=== PATIENT | female | born 1970 | race Caucasian/White ===

== ENCOUNTER 2019-02-01 13:56 | Emergency (ER) | payer BC ==
[2019-02-01] MEDS ORDERED: LORazepam 2 MG/ML INJ IV STA (14:55)
[2019-02-01] MEDS ORDERED: SODIUM CHLORIDE 0.9% 1,000 ML IV ONE (14:57)
--- NOTE | 2019-02-01 15:29 | ED ---
Anxiety HPI - General Chief Complaint: Anxiety Stated Complaint: Dizziness, near syncope Time Seen by Provider: 02/01/19 14:42 Source: patient, RN notes reviewed Mode of arrival: wheelchair Limitations: no limitations - History of Present Illness Initial Comments: 48-year-old female presents emergency Department chief complaint of feeling lightheaded, URI symptoms, anxiety. Patient states she's not sure what's going on though she states that she is very stressed with the care of her mother. Patient states that she give him a 24 hour care she is currently in the hospital for CVA. She states that she just feels overwhelmed and was sitting around and felt lightheaded. She had no syncopal episodes denies any chest pain or palpitations. Patient does admit that her anxiety level has been higher than usual and she has been out of her Wellbutrin. Patient denies being suicidal or homicidal denies any nausea vomiting diarrhea constipation. - Related Data Home Medications: Home Medications Medication Instructions Recorded Confirmed Amitriptyline HCl [Elavil] 25 mg PO HS 02/01/19 02/01/19 Buta/APAP/Caf/Cod [id number] 1 - 2 cap PO Q8H PRN 02/01/19 02/01/19 [Fioricet w/Cod [id number]] Dicyclomine [Bentyl] 10 mg PO BID PRN 02/01/19 02/01/19 PARoxetine HCL [Paxil] 40 mg PO DAILY 02/01/19 02/01/19 busPIRone HCl [Buspar] 10 mg PO BID 02/01/19 02/01/19 Previous Rx's Medication Instructions Recorded LORazepam [Ativan] 0.5 mg PO TID PRN 3 Days #9 tab 02/01/19 buPROPion XL [Wellbutrin Xl] 150 mg PO DAILY #30 tab.er.24h 02/01/19 Allergies/Adverse Reactions: Allergies Allergy/AdvReac Type Severity Reaction Status Date / Time egg AdvReac GI UPSET Verified 02/01/19 15:18 gluten AdvReac GI UPSET Verified 02/01/19 15:18 soy AdvReac GI UPSET Verified 02/01/19 15:18 wheat AdvReac GI UPSET Verified 02/01/19 15:18 Review of Systems ROS Statement: Those systems with pertinent positive or pertinent negative responses have been documented in the HPI. ROS Other: All systems not noted in ROS Statement are negative. Past Medical History Past Medical History: No Reported History History of Any Multi-Drug Resistant Organisms: None Reported Past Surgical History: Hysterectomy Additional Past Surgical History / Comment(s): Right nephrectomy, Jaw surgery, Rhinoplasty Past Psychological History: Anxiety, Depression Smoking Status: Never smoker Past Alcohol Use History: Occasional Past Drug Use History: None Reported General Exam Limitations: no limitations General appearance: alert, in no apparent distress Head exam: Present: atraumatic, normocephalic, normal inspection Eye exam: Present: normal appearance, PERRL, EOMI. Absent: scleral icterus, conjunctival injection, periorbital swelling ENT exam: Present: normal exam, normal oropharynx, mucous membranes moist Neck exam: Present: normal inspection, full ROM. Absent: tenderness, meningism us, lymphadenopathy Respiratory exam: Present: normal lung sounds bilaterally. Absent: respiratory distress, wheezes, rales, rhonchi, stridor Cardiovascular Exam: Present: regular rate, normal rhythm, normal heart sounds. Absent: systolic murmur, diastolic murmur, rubs, gallop, clicks GI/Abdominal exam: Present: soft, normal bowel sounds. Absent: distended, tenderness, guarding, rebound, rigid Neurological exam: Present: alert, oriented X3, CN II-XII intact, reflexes normal. Absent: motor sensory deficit Psychiatric exam: Present: anxious Skin exam: Present: warm, dry, intact, normal color. Absent: rash Course Vital Signs 02/01/19 13:57 Temperature 97.8 F Pulse Rate 96 Respiratory 20 Rate Blood Pressure 143/80 O2 Sat by Pulse 100 Oximetry Medical Decision Making - Medical Decision Making 48-year-old female presented presented for stress anxiety, overall feeling, dizziness. Patient lab EKG unremarkable she feels better after Ativan. Patient be discharged at this time is felt related to her stress reaction and anxiety. - Lab Data Result diagrams: 02/01/19 13:23 02/01/19 13:23 Lab Results 02/01/19 02/01/19 02/01/19 Range/Units 13:23 13:23 13:23 WBC 5.0 (3.8-10.6) k/uL RBC 4.17 (3.80-5.40) m/uL Hgb 13.4 (11.4-16.0) gm/dL Hct 40.0 (34.0-46.0) % MCV 95.9 (80.0-100.0) fL MCH 32.2 (25.0-35.0) pg MCHC 33.6 (31.0-37.0) g/dL RDW 14.1 (11.5-15.5) % Plt Count 283 (150-450) k/uL Neutrophils % 61 % Lymphocytes % 25 % Monocytes % 5 % Eosinophils % 7 % Basophils % 1 % Neutrophils # 3.0 (1.3-7.7) k/uL Lymphocytes # 1.2 (1.0-4.8) k/uL Monocytes # 0.3 (0-1.0) k/uL Eosinophils # 0.3 (0-0.7) k/uL Basophils # 0.0 (0-0.2) k/uL Sodium 141 (137-145) mmol/L Potassium 4.5 (3.5-5.1) mmol/L Chloride 108 H (98-107) mmol/L Carbon Dioxide 26 (22-30) mmol/L Anion Gap 7 mmol/L BUN 13 (7-17) mg/dL Creatinine 0.80 (0.52-1.04) mg/dL Est GFR (CKD-EPI)AfAm >90 (>60 ml/min/1.73 sqM) Est GFR (CKD-EPI)NonAf 88 (>60 ml/min/1.73 sqM) Glucose 111 H (74-99) mg/dL Calcium 9.6 (8.4-10.2) mg/dL Total Bilirubin 0.4 (0.2-1.3) mg/dL AST 26 (14-36) U/L ALT 13 (9-52) U/L Alkaline Phosphatase 78 (38-126) U/L Troponin I <0.012 (0.000-0.034) ng/mL Total Protein 7.7 (6.3-8.2) g/dL Albumin 4.4 (3.5-5.0) g/dL - EKG Data EKG Comments: EKG performed at 13:17 sinus rhythm rate of 72 NH 128 QRS 86 QT/QTC 386/[address] elevation normal intervals Disposition Clinical Impression: Acute anxiety, Lightheaded, Stress reaction Disposition: HOME SELF-CARE Condition: Stable Instructions (If sedation given, give patient instructions): Generalized Anxiety Disorder (ED) Additional Instructions: Please return to the Emergency Department if symptoms worsen or any other concerns. Prescriptions: LORazepam [Ativan] 0.5 mg PO TID PRN 3 Days #9 tab PRN Reason: Anxiety buPROPion XL [Wellbutrin Xl] 150 mg PO DAILY #30 tab.er.24h Is patient prescribed a controlled substance at d/c from ED?: Yes When asked, does pt state using other controlled substances?: No If prescribed controlled substance>3 days was MAPS reviewed?: Prescribed <3 Days Referrals: Rivera Kingsley MD [Primary Care Provider] - 1-2 days Time of Disposition: 16:34
[2019-02-01 15:32] LABS: Basophils % (A) 1 %; Eosinophils # (A) 0.3 k/uL (0-0.7); Eosinophils % (A) 7 %; HGB 13.4 gm/dL (11.4-16.0); Lymphocytes # (A) 1.2 k/uL (1.0-4.8); Lymphocytes % (A) 25 %; MCH 32.2 pg (25.0-35.0); MCHC 33.6 g/dL (31.0-37.0); MCV 95.9 fL (80.0-100.0); Monocytes # (A) 0.3 k/uL (0-1.0); Monocytes % (A) 5 %; Neutrophils % (A) 61 %; Platelet Count 283 k/uL (150-450); RBC 4.17 m/uL (3.80-5.40); RDW 14.1 % (11.5-15.5)
[2019-02-01 15:40] LABS: ALT 13 U/L (9-52); AST 26 U/L (14-36); African American GFR (CKD) >90 (>60 ml/min/1.73 sqM); Albumin 4.4 g/dL (3.5-5.0); Alkaline Phosphatase 78 U/L (38-126); Anion Gap 7 mmol/L; Blood Urea Nitrogen 13 mg/dL (7-17); Calcium 9.6 mg/dL (8.4-10.2); Carbon Dioxide 26 mmol/L (22-30); Chloride 108 mmol/L (98-107); Glucose 111 mg/dL (74-99); Potassium 4.5 mmol/L (3.5-5.1); Sodium 141 mmol/L (137-145); Total Bilirubin 0.4 mg/dL (0.2-1.3); Total Protein 7.7 g/dL (6.3-8.2)
--- NOTE | 2019-02-01 15:47 | XR ---
EXAMINATION TYPE: XR chest 2V DATE OF EXAM: 02/01/2019 COMPARISON: NONE HISTORY: Cough, dizziness, and myotendinous TECHNIQUE: Frontal and lateral views of the chest are obtained. FINDINGS: There is no focal air space opacity, pleural effusion, or pneumothorax seen. The cardiac silhouette size is within normal limits. Pulmonary hyperinflation and flattening of the diaphragms is seen. The osseous structures are intact. Mild multilevel degenerative changes of the spine. IMPRESSION: No acute cardiopulmonary process. Pulmonary hyperinflation may relate to degree of inspi ration or underlying COPD. Correlate with pulmonary function tests.
[2019-02-01 16:45] VITALS: BP 118/70; PULSE 69; RESP 17; TEMP 97.5
== END 2019-02-01 16:55 | disposition home or self-care (01) ==
LOC: EC 13:56
DX: F41.9 Anxiety disorder, unspecified (principal); F43.9 Reaction to severe stress, unspecified; F32.9 Major depressive disorder, single episode, unspecified; Z91.012 Allergy to eggs; Z91.018 Allergy to other foods; Z79.899 Other long term (current) drug therapy
CPT/HCPCS: 36415; 93005; 80053; 84484; 85025; 71046; 99284; 96374; 96361; J2060

== ENCOUNTER → 2019-05-09 | Outpatient (CLI) | payer BC ==
--- NOTE | 2019-05-11 07:59 | MM ---
Reason for exam: screening (asymptomatic). Last mammogram was performed 3 years and 9 months ago. Physical Findings: A clinical breast exam by your physician is recommended on an annual basis and results should be correlated with mammographic findings. MG Screening Mammo w CAD Bilateral CC and MLO view(s) were taken. Prior study comparison: August 21, 2015, mammogram, performed at [facility]. August 14, 2015, mammogram, performed at [facility]. December 20, 2013, mammogram, performed at [facility]. The breast tissue is extremely dense which could obscure a lesion on mammography. There is no discrete abnormality. No significant changes when compared with prior studies. ASSESSMENT: Negative, BI-RAD 1 RECOMMENDATION: Routine screening mammogram of both breasts in 1 year.
== END | disposition home or self-care (01) ==
LOC: RADMAMWWP 14:57
PROVIDERS: ATTEND Nurse Practitioner Adult Health
DX: Z12.31 Encounter for screening mammogram for malignant neoplasm of breast (principal)
CPT/HCPCS: 77067

== ENCOUNTER → 2020-10-29 | Outpatient (CLI) | payer BC ==
--- NOTE | 2020-10-29 14:24 | CT ---
EXAMINATION TYPE: CT sinus wo con DATE OF EXAM: 10/29/2020 COMPARISON: None HISTORY: sinus congestion, ear pain CT DLP: 442.[address] of the paranasal sinuses was performed in the axial and coronal planes. Bone and soft tissue settings are submitted. There is postoperative plate fixation involving the anterior maxillary sinuses bilaterally. There is near complete opacification of the right maxillary sinus with internal calcifications seen. There is medial maxillary antrectomy noted on the left. Minimal mucosal thickening noted of the left maxillary sinus. The remaining paranasal sinuses appear to be well-aerated. The nasal septum is midline. Heale d fracture left hemimandible.Mild opacification right-sided mastoid air cells. No bony destructive changes are seen within the field of view. IMPRESSION: 1. Near complete opacification right maxillary sinus compatible with chronic sinusitis. Internal calc ification suggested. 2. Postoperative changes as discussed above. 3. Mild opacification right-sided mastoid air cells.
== END | disposition home or self-care (01) ==
LOC: RADCTMAIN 14:01
PROVIDERS: ATTEND Otolaryngology
DX: J34.89 Other specified disorders of nose and nasal sinuses (principal); Z98.890 Other specified postprocedural states
CPT/HCPCS: 70486

== ENCOUNTER → 2020-10-29 | Outpatient (CLI) | payer BC ==
[2020-10-29 19:10] LABS: Basophils # (A) 0.04 X 10*3/uL (0.00-0.10); Basophils % (A) 0.8 %; Eosinophils # (A) 0.32 X 10*3/uL (0.04-0.35); Eosinophils % (A) 6.4 %; HCT 39.7 % (37.2-46.3); HGB 13.1 g/dL (12.0-15.0); Lymphocytes # (A) 1.44 X 10*3/uL (0.90-5.00); Lymphocytes % (A) 28.7 %; MCH 30.8 pg (27.0-32.0); MCV 93.2 fL (80.0-97.0); Mean Platelet Volume 10.1 fL (9.5-12.2); Monocytes # (A) 0.43 X 10*3/uL (0.20-1.00); Monocytes % (A) 8.6 %; Neutrophils # (A) 2.77 X 10*3/uL (1.80-7.70); Neutrophils % (A) 55.3 %; Platelet Count 290 X 10*3/uL (140-440); RBC 4.26 X 10*6/uL (4.10-5.20); RDW 13.6 % (11.5-14.5); WBC 5.01 X 10*3/uL (4.50-10.00)
[2020-10-29 21:45] LABS: African American GFR (CKD) 77.2 (60.0-200.0); Albumin 4.4 g/dL (3.80-4.90); Albumin/Globulin Ratio 2.1 (1.60-3.17); Anion Gap 14.8 mmol/L (4.00-12.00); Calcium 9.1 mg/dL (8.7-10.3); Carbon Dioxide 24.2 mmol/L (21.6-31.8); Globulin 2.1 g/dL (1.6-3.3); LDL Cholesterol,Calculated 131.4 mg/dL (0.0-131.0); Non-African American GFR(CKD) 66.6 (60.0-200.0); Potassium 4.3 mmol/L (3.5-5.5); Total Bilirubin 0.5 mg/dL (0.2-1.2); Total Protein 6.5 g/dL (6.2-8.2); VLDL Calculation 22.6 mg/dL (5.00-40.00)
[2020-10-29 21:54] LABS: T4, Free (Free Thyroxine) 1.4 ng/dL (0.80-1.80)
== END | disposition home or self-care (01) ==
LOC: LABWHC1 13:48
PROVIDERS: ATTEND Nurse Practitioner Adult Health
DX: Z00.00 Encounter for general adult medical examination without abnormal findings (principal)
CPT/HCPCS: 36415; 80053; 80061; 84439; 84443; 85025

== ENCOUNTER → 2022-02-19 | Outpatient (CLI) | payer BC ==
--- NOTE | 2022-02-20 06:20 | MR ---
EXAMINATION TYPE: MR orbits wo/w con DATE OF EXAM: 02/19/2022 COMPARISON: Sinus CT October 29, 2020 HISTORY: Sinus pain, hx surgery for deviated septum. TECHNIQUE: Multiplanar, multisequence images of the brain and brainstem is performed without and with IV contras t, utilizing 6 mL intravenous Gadavist . Orbital protocol. FINDINGS: Globes appear intact bilaterally. Intraconal fat is preserved. Rectus muscles are symmetric and within normal limits. Suprasellar cistern is maintained. Optic chiasm is not effaced. Pituitary gland is normal in size within sella turcica. Right maxillary sinus shows persistent moderate to severe concentric enhancing mucosal thickening and internal heterogeneous fluid similar to prior CT. Other paranasal sinuses including the left maxilla ry sinus remain clear. Susceptibility Artifact from surgical change involving the anterior maxillary sinus olson bilaterally is redemonstrated. Nasal septum remains slightly deviated to right of midline . Visualized portion of brain parenchyma is unremarkable. No hydrocephalus is seen. Craniocervical junc tion is maintained. IMPRESSION: Findings could reflect persistent or recurrent acute on chronic right maxillary sinus dis ease. Orbital findings within normal limits.
== END | disposition home or self-care (01) ==
LOC: RADMRIMAIN 17:30
PROVIDERS: ATTEND Otolaryngology Facial Plastic Surgery
DX: J32.9 Chronic sinusitis, unspecified (principal)
CPT/HCPCS: 70543; A9585

== ENCOUNTER → 2022-10-15 | Outpatient (CLI) | payer BC ==
--- NOTE | 2022-10-15 18:44 | CT ---
EXAMINATION TYPE: CT iac wo con CT DLP: 142.7 mGycm, Automated exposure control for dose reduction was used. DATE OF EXAM: 10/15/2022 5:10 PM INDICATION: Patient age:Female; 51 years old; Reason for study: H69.91; COMPARISON: CT sinus 10/29/2020. TECHNIQUE: Multiple thin axial images were obtained through the temporal bones and internal auditory canals. Additional coronal reformatted images were obtained. CT Contrast: Contrast used: none. FINDINGS: Right Temporal Bone: External Ear: The external auditory canal is unremarkable, The tympanic membrane is present and unrem arkable. Middle Ear: The ossicles demonstrate a normal appearance. Prussak's space is clear and the scutum i s intact. There is no evidence of osseous erosion and the tegmen tympani is intact. Inner Ear: Cochlea, vestibule and semi circular canals are unremarkable. No evidence of carotid checo l dehiscence. Two and a half turns of the cochlea are identified. The vestibular aqueduct is not enl arged. Mastoid Air Cells: Scattered opacified mastoid air cells. The tegmen mastoideum is intact. The aditus ad antrum is clear. Internal Auditory Canal: The internal auditory canal is unremarkable. Left Temporal Bone: External Ear: The external auditory canal is unremarkable, The tympanic membrane is present and unrem arkable. Middle Ear: The ossicles demonstrate a normal appearance. Prussak's space is clear and the scutum i s intact. There is no evidence of osseous erosion and the tegmen tympani is intact. Inner Ear: Cochlea, vestibule and semi circular canals are unremarkable. No evidence of carotid checo l dehiscence. Two and a half turns of the cochlea are identified. The vestibular aqueduct is not enl arged. Mastoid Air Cells: The mastoid air cells are clear. The tegmen mastoideum is intact. The aditus ad an trum is clear. Internal Auditory Canal: The internal auditory canal is unremarkable. Other: There is post surgical changes to the anterior skull with the anterior maxillary sinuses demon strating fixation hardware. Prior fractures are visualized some which have not completely ossified. H igh density within the right maxillary sinus could represent posttraumatic sequela including displace d osseous structures and/or with chronic sinusitis changes superimposed. IMPRESSION: 1. Small right mastoid air cell effusion. No evidence of osseous erosion. 2. Posttreatment changes from prior suspected trauma to the from the face.
== END | disposition home or self-care (01) ==
LOC: RADCTMAIN 16:56
PROVIDERS: ATTEND Otolaryngology Facial Plastic Surgery
DX: H69.91 Unspecified Eustachian tube disorder, right ear (principal); Z98.890 Other specified postprocedural states
CPT/HCPCS: 70480